=== PATIENT | male | born 1965 | race African-American/Black ===

== ENCOUNTER 2016-07-26 00:56 | Emergency (ER) | payer OTHER ==
[~2016-07-26] VITALS: Ht 177.8 cm; Wt 84.8 kg
[~2016-07-26 00:56] MED LIST: ADVIL,NUPRIN,M200 MG PO; AMBIEN5 MG PO; AZITHROMYCIN250 MG1 PO; CATAPRES0.1 MG PO; CEFTIN500 MG PO; CLONIDINE HCL0.1 MG PO; DALMANE30 MG PO; FLONASE16 G1 BOTH NARES; GENTAMICIN SULFA5 ML BOTH EYES; IRON18 MG PO; LABETALOL HCL200 MG PO; LABETALOL HCL300 MG PO; LASIX10 MG PO; LEVOFLOXACIN500 MG PO; LISINOPRIL20 MG PO; NEURONTIN100 MG PO; NIFEDIPINE ER60 MG PO; NIFEDIPINE ER90 MG PO; OMEPRAZOLE20 MG PO; ONDANSETRON ODT4 MG PO; PREDNISONE20 MG PO; PRILOSEC OTC20 MG PO; PROCARDIA XL90 MG PO; RENA-VITE RX T1 EACH PO; ROBITUSSIN AC,T10 ML PO; TRAZODONE HCL50 MG PO; ZOFRAN4 MG PO
[2016-07-26 01:42] LABS: HEMATOCRIT 32.8 % (38.0-50.0); MCH 26.9 PG (29.0-34.0); MCHC 31.7 G/DL (30.0-36.0); MEAN PLAT.VOLUME 10.6 uM^3 (9.0-12.4); PLATELET COUNT 138 K/uL (156-360); RBC DIS.WIDTH-CV 14.7 % (11.8-14.6); RBC DIS.WIDTH-SD 44.6 % (39-53); RED BLOOD COUNT 3.86 M/uL (4.00-5.50); WHITE BLOOD COUNT 5.6 K/uL (4.1-10.2)
[2016-07-26 01:51] LABS: CHLORIDE 96 mEq/L (99-109); POTASSIUM 5.2 mEq/L (3.7-5.4)
[2016-07-26 01:52] LABS: SODIUM 137 mEq/L (136-147)
[2016-07-26 01:53] LABS: GLUCOSE 115 mg/dL (70-99)
[2016-07-26 01:55] LABS: ANION GAP 16 MEQ/L (2-14)
[2016-07-26 01:57] LABS: GFR ESTIMATE (CALCULATED) 5 mL/min/
[2016-07-26 01:58] LABS: UREA NITROGEN (BUN) 68 mg/dL (9-23)
[2016-07-26 02:28] LABS: TROP-I INTERPRETATION NEGATIVE; TROPONIN-I 0.02 ng/mL (0.0-0.30)
[2016-07-26 02:46] LABS: INFLUENZA A VIRAL ANTIGEN NEGATIVE; INFLUENZA B VIRAL ANTIGEN NEGATIVE
[2016-07-26] MEDS ORDERED: PROAIR HFA8.5 GM IH (04:54)
[2016-07-26] MEDS ORDERED: PREDNISONE20 MG PO (04:54)
[2016-07-26] MEDS ORDERED: HYCODAN SYRUP480 ML PO (04:54)
[2016-07-26] MEDS ORDERED: PERCOCET 5/31 TABLET PO (04:54)
[2016-07-26 06:10] VITALS: BP 150/90
== END 2016-07-26 05:49 | disposition home or self-care (01) ==
LOC: EME 00:56
PROVIDERS: Emergency Medicine
DX: J20.9 Acute bronchitis, unspecified (principal); I12.0 Hypertensive chronic kidney disease with stage 5 chronic kidney disease or end stage renal disease; N18.5 Chronic kidney disease, stage 5; Z99.2 Dependence on renal dialysis; F17.200 Nicotine dependence, unspecified, uncomplicated
CPT/HCPCS: 71020; 80048; 84484; 85027; 87502; 93005; 94640; 99281; 99284; J1100

== ENCOUNTER 2016-10-21 06:55 | Day surgery (SDC) | payer OTHER ==
[~2016-10-21] VITALS: Ht 177.8 cm; Wt 86.1 kg
[~2016-10-21 06:55] MED LIST changes: +CATAPRES0.2 MG PO; +HYCODAN SYRUP480 ML PO; +PERCOCET 5/31 TABLET PO; +PROAIR HFA8.5 GM IH; +RENVELA800 MG PO; +SENSIPAR30 MG PO
[2016-10-21 07:31] LABS: HEMATOCRIT 36.5 % (38.0-50.0); MCH 29.7 PG (29.0-34.0); MCHC 32.3 G/DL (30.0-36.0); MCV 91.9 FL (86-99); MEAN PLAT.VOLUME 10.8 uM^3 (9.0-12.4); PLATELET COUNT 215 K/uL (156-360); RBC DIS.WIDTH-CV 13.2 % (11.8-14.6); RBC DIS.WIDTH-SD 44.2 % (39-53); RED BLOOD COUNT 3.97 M/uL (4.00-5.50); WHITE BLOOD COUNT 6.9 K/uL (4.1-10.2)
[2016-10-21 07:32] VITALS: BP 173/97
[2016-10-21 07:45] LABS: CHLORIDE 93 mEq/L (99-109); POTASSIUM 4.1 mEq/L (3.7-5.4); SODIUM 143 mEq/L (136-147)
[2016-10-21 07:47] LABS: GLUCOSE 116 mg/dL (70-99)
[2016-10-21 07:48] LABS: ANION GAP 16 MEQ/L (2-14)
[2016-10-21 07:51] LABS: GFR ESTIMATE (CALCULATED) 7 mL/min/
[2016-10-21 07:52] LABS: UREA NITROGEN (BUN) 28 mg/dL (9-23)
[2016-10-21 08:36] LABS: METH RESISTANT S AUREUS PCR POSITIVE (NEGATIVE)
[2016-10-21 08:37] LABS: PROBE CHECK PASS
[2016-10-21] MEDS ORDERED: NORCO 5/3251 TABLET PO (10:21)
[2016-10-21 11:30] VITALS: BP 166/88
== END 2016-10-21 11:54 | disposition home or self-care (01) ==
LOC: SDC 06:55
PROVIDERS: Surgery
DX: T82.858A Stenosis of other vascular prosthetic devices, implants and grafts, initial encounter (principal); Y83.2 Surgical operation with anastomosis, bypass or graft as the cause of abnormal reaction of the patient, or of later complication, without mention of misadventure at the time of the procedure; I12.0 Hypertensive chronic kidney disease with stage 5 chronic kidney disease or end stage renal disease; N18.6 End stage renal disease; Z99.2 Dependence on renal dialysis; F17.200 Nicotine dependence, unspecified, uncomplicated; Z83.3 Family history of diabetes mellitus; Z80.3 Family history of malignant neoplasm of breast
CPT/HCPCS: 80048; 85027; 87641; C1725; C1769; C1887; C1894; J0690; J1644; J2250; J3010

== ENCOUNTER 2016-11-21 04:52 | Observation (INO) | payer OTHER ==
[~2016-11-21] VITALS: Ht 177.8 cm; Wt 86.0 kg
[~2016-11-21 04:52] MED LIST changes: +NORCO 5/3251 TABLET PO
[2016-11-21 06:14] LABS: HEMATOCRIT 37.2 % (38.0-50.0); MCH 29.7 PG (29.0-34.0); MCHC 33.1 G/DL (30.0-36.0); MCV 89.9 FL (86-99); MEAN PLAT.VOLUME 11.9 uM^3 (9.0-12.4); PLATELET COUNT 135 K/uL (156-360); RBC DIS.WIDTH-CV 13.1 % (11.8-14.6); RBC DIS.WIDTH-SD 43.3 % (39-53); RED BLOOD COUNT 4.14 M/uL (4.00-5.50); WHITE BLOOD COUNT 7.3 K/uL (4.1-10.2)
[2016-11-21 06:23] LABS: INTER. NORMALIZED RATIO 1.1; PROTHROMBIN TIME 11.7 (9.2-11.2); PTT 29.2 (25-32)
[2016-11-21 06:25] LABS: CHLORIDE 91 mEq/L (99-109); POTASSIUM 4.6 mEq/L (3.7-5.4); SODIUM 141 mEq/L (136-147)
[2016-11-21 06:27] LABS: GLUCOSE 93 mg/dL (70-99)
[2016-11-21 06:29] LABS: ANION GAP 21 MEQ/L (2-14)
[2016-11-21 06:30] LABS: TOTAL BILIRUBIN 0.9 mg/dL (0.0-1.0)
[2016-11-21 06:31] LABS: ALKALINE PHOSPHATASE 84 IU/L (3-129); GFR ESTIMATE (CALCULATED) 5 mL/min/
[2016-11-21 06:32] LABS: UREA NITROGEN (BUN) 47 mg/dL (9-23)
[2016-11-21 06:34] LABS: LIPASE 100 U/L (1.0-51.0)
[2016-11-21 06:35] LABS: TROP-I INTERPRETATION NEGATIVE; TROPONIN-I 0.03 ng/mL (0.0-0.30)
[2016-11-21] MEDS ORDERED: ROPINIROLE HCL0.5 MG PO (08:45)
[2016-11-21 08:53] LABS: ADD MIUA? YES; BILIRUBIN NEGATIVE; BLOOD SMALL; COLOR YELLOW ((YELLOW)); GLUCOSE (STRIP) 50; KETONES 5; LEUKOCYTES NEGATIVE; NITRITE NEGATIVE; PROTEIN (STRIP) >=500; UROBILINOGEN 0.2 MG/DL (0.2-1.0)
[2016-11-21 08:58] LABS: BACTERIA RARE /HPF; EPITHELIAL CELLS RARE /HPF; MUCUS NONE SEEN /LPF; UCUL ADDED? NO; WHITE BLOOD CELLS 0-5 /HPF (0-5)
[2016-11-21 11:12] LABS: POINT-OF-CARE METER ID UU13113702
[2016-11-21 12:15] VITALS: BP 215/100
[2016-11-21 13:11] LABS: TROP-I INTERPRETATION NEGATIVE; TROPONIN-I 0.03 ng/mL (0.0-0.30)
[2016-11-21 13:53] VITALS: BP 188/93
[2016-11-21 15:30] VITALS: BP 166/83
[2016-11-21 15:40] LABS: METH RESISTANT S AUREUS PCR NEGATIVE (NEGATIVE)
[2016-11-21 15:43] LABS: PROBE CHECK PASS; SPECIMEN PROCESSING CONTROL PASS
[2016-11-21 19:00] VITALS: BP 162/59
[2016-11-21 19:28] LABS: TROP-I INTERPRETATION NEGATIVE; TROPONIN-I 0.04 ng/mL (0.0-0.30)
[2016-11-21 23:30] VITALS: BP 153/77
[2016-11-22 04:30] VITALS: BP 134/63
[2016-11-22 07:00] VITALS: BP 161/86
[2016-11-22 07:26] LABS: MCH 29.9 PG (29.0-34.0); MCHC 33.9 G/DL (30.0-36.0); MCV 88.2 FL (86-99); MEAN PLAT.VOLUME 11.6 uM^3 (9.0-12.4); PLATELET COUNT 157 K/uL (156-360); RBC DIS.WIDTH-CV 12.9 % (11.8-14.6); RBC DIS.WIDTH-SD 41.8 % (39-53); RED BLOOD COUNT 3.74 M/uL (4.00-5.50); WHITE BLOOD COUNT 6.2 K/uL (4.1-10.2)
[2016-11-22] MEDS ORDERED: ZOFRAN ODT4 MG PO (07:55)
[2016-11-22 07:56] LABS: ALKALINE PHOSPHATASE 80 IU/L (3-129); AMYLASE 87 IU/L (1-118); ANION GAP 21 MEQ/L (2-14); CHLORIDE 86 MEQ/L (99-109); GFR ESTIMATE (CALCULATED) 4 mL/min/; GLUCOSE 94 mg/dL (70-99); LIPASE 59 U/L (1.0-51.0); POTASSIUM 3.9 MEQ/L (3.7-5.4); SAMPLE HEMOLYSIS CHECK 0; SAMPLE ICTERIC CHECK 0; SAMPLE LIPEMIA CHECK 0; SODIUM 136 MEQ/L (136-147); TOTAL BILIRUBIN 0.8 MG/DL (0.0-1.0); UREA NITROGEN (BUN) 57 mg/dL (9-23)
[2016-11-22 12:09] VITALS: BP 158/95
== END 2016-11-22 15:25 | disposition home or self-care (01) ==
LOC: EME 04:52 → 4EAST 08:35 → EDOF 08:35 → 4EAST 12:00
PROVIDERS: Emergency Medicine; Pediatrics
PROC: 5A1D00Z (ICD-10-PCS; principal; 2016-11-22)
DX: I16.1 Hypertensive emergency (principal); I12.0 Hypertensive chronic kidney disease with stage 5 chronic kidney disease or end stage renal disease; E11.22 Type 2 diabetes mellitus with diabetic chronic kidney disease; N18.6 End stage renal disease; E86.0 Dehydration; R11.2 Nausea with vomiting, unspecified; R31.9 Hematuria, unspecified; B19.20 Unspecified viral hepatitis C without hepatic coma; D64.9 Anemia, unspecified; Z99.2 Dependence on renal dialysis; R91.1 Solitary pulmonary nodule
CPT/HCPCS: 70450; 71010; 74176; 80053; 81003; 82140; 82150; 82948; 83605; 83690; 84484; 85027; 85610; 85730; 87641; 93005; 99281; 99285; G0257; G0378; J0360; J1644; J2270; J2405; J2765

== ENCOUNTER 2016-12-17 23:11 | Inpatient (IN) | payer OTHER ==
[~2016-12-17] VITALS: Ht 177.8 cm; Wt 82.1 kg
[~2016-12-17 23:11] MED LIST changes: +ROPINIROLE HCL0.5 MG PO; +ZOFRAN ODT4 MG PO
[2016-12-17 23:42] LABS: HEMATOCRIT 24.3 % (38.0-50.0); MCH 29.1 PG (29.0-34.0); MCHC 32.9 G/DL (30.0-36.0); MCV 88.4 FL (86-99); MEAN PLAT.VOLUME 10.7 uM^3 (9.0-12.4); PLATELET COUNT 151 K/uL (156-360); RBC DIS.WIDTH-CV 13.4 % (11.8-14.6); RBC DIS.WIDTH-SD 42.5 % (39-53); WHITE BLOOD COUNT 4.3 K/uL (4.1-10.2)
[2016-12-17 23:43] LABS: RED BLOOD COUNT 2.75 M/uL (4.00-5.50)
[2016-12-17 23:50] LABS: CHLORIDE 92 mEq/L (99-109); POTASSIUM 3.6 mEq/L (3.7-5.4); SODIUM 140 mEq/L (136-147)
[2016-12-17 23:51] LABS: GLUCOSE 128 mg/dL (70-99)
[2016-12-17 23:53] LABS: ANION GAP 13 MEQ/L (2-14)
[2016-12-17 23:55] LABS: GFR ESTIMATE (CALCULATED) 7 mL/min/
[2016-12-17 23:56] LABS: UREA NITROGEN (BUN) 27 mg/dL (9-23)
[2016-12-18 00:04] LABS: TROP-I INTERPRETATION NEGATIVE; TROPONIN-I 0.01 ng/mL (0.0-0.30)
[2016-12-18] MEDS ORDERED: CATAPRES0.1 MG PO (00:55)
[2016-12-18] MEDS ORDERED: NORVASC10 MG PO (00:56)
[2016-12-18 06:33] LABS: HEMATOCRIT 24.6 % (38.0-50.0); MCH 29.4 PG (29.0-34.0); MCHC 33.3 G/DL (30.0-36.0); MCV 88.2 FL (86-99); MEAN PLAT.VOLUME 10.1 uM^3 (9.0-12.4); PLATELET COUNT 131 K/uL (156-360); RBC DIS.WIDTH-CV 13.3 % (11.8-14.6); RED BLOOD COUNT 2.79 M/uL (4.00-5.50)
[2016-12-18 11:47] VITALS: BP 144/78
[2016-12-18 12:26] LABS: POINT-OF-CARE METER ID UU13113807
[2016-12-18 13:59] LABS: TROP-I INTERPRETATION NEGATIVE; TROPONIN-I 0.03 ng/mL (0.0-0.30)
[2016-12-18 15:49] VITALS: BP 130/72
[2016-12-18 19:43] LABS: HEMATOCRIT 24.7 % (38.0-50.0); MCV 88.8 FL (86-99)
[2016-12-18 20:16] VITALS: BP 139/76
[2016-12-18 20:16] LABS: TROP-I INTERPRETATION NEGATIVE; TROPONIN-I 0.02 ng/mL (0.0-0.30)
[2016-12-18 23:38] VITALS: BP 139/76; BP 146/80
[2016-12-19 04:16] VITALS: BP 124/76
[2016-12-19 06:53] LABS: HEMATOCRIT 24.7 % (38.0-50.0); MCH 30.2 PG (29.0-34.0); MCV 88.8 FL (86-99); MEAN PLAT.VOLUME 10.5 uM^3 (9.0-12.4); PLATELET COUNT 146 K/uL (156-360); RBC DIS.WIDTH-CV 13.5 % (11.8-14.6); RBC DIS.WIDTH-SD 42.9 % (39-53); RED BLOOD COUNT 2.78 M/uL (4.00-5.50); WHITE BLOOD COUNT 5.3 K/uL (4.1-10.2)
[2016-12-19 07:17] LABS: ANION GAP 17 MEQ/L (2-14); CHLORIDE 88 MEQ/L (99-109); SAMPLE HEMOLYSIS CHECK 0; SAMPLE ICTERIC CHECK 0; SAMPLE LIPEMIA CHECK 0; SODIUM 137 MEQ/L (136-147)
[2016-12-19 07:22] LABS: GFR ESTIMATE (CALCULATED) 5 mL/min/; GLUCOSE 81 mg/dL (70-99); POTASSIUM 4.4 MEQ/L (3.7-5.4); UREA NITROGEN (BUN) 41 mg/dL (9-23)
[2016-12-19 07:31] LABS: HEMATOCRIT 24.7 % (38.0-50.0); MCV 88.8 FL (86-99)
[2016-12-19 07:54] LABS: METH RESISTANT S AUREUS PCR NEGATIVE (NEGATIVE)
[2016-12-19 07:57] LABS: PROBE CHECK PASS; SPECIMEN PROCESSING CONTROL PASS
[2016-12-19 12:03] VITALS: BP 126/67
[2016-12-19 13:05] VITALS: BP 126/67
[2016-12-19 16:55] VITALS: BP 116/58
[2016-12-19 20:00] VITALS: BP 133/71
[2016-12-19 20:17] LABS: HEMATOCRIT 22.6 % (38.0-50.0); MCV 87.6 FL (86-99)
[2016-12-20] VITALS: BP 135/74
[2016-12-20 03:53] VITALS: BP 142/77
[2016-12-20 07:58] LABS: HEMATOCRIT 22.9 % (38.0-50.0); MCHC 34.5 G/DL (30.0-36.0); MCV 87.1 FL (86-99); MEAN PLAT.VOLUME 11.2 uM^3 (9.0-12.4); PLATELET COUNT 147 K/uL (156-360); RBC DIS.WIDTH-CV 13.8 % (11.8-14.6); RBC DIS.WIDTH-SD 41.8 % (39-53); RED BLOOD COUNT 2.63 M/uL (4.00-5.50); WHITE BLOOD COUNT 5.6 K/uL (4.1-10.2)
[2016-12-20 08:08] LABS: ANION GAP 16 MEQ/L (2-14); CHLORIDE 87 MEQ/L (99-109); POTASSIUM 4.8 MEQ/L (3.7-5.4); SAMPLE HEMOLYSIS CHECK 0; SAMPLE ICTERIC CHECK 0; SAMPLE LIPEMIA CHECK 0; SODIUM 133 MEQ/L (136-147)
[2016-12-20 08:13] LABS: GFR ESTIMATE (CALCULATED) 4 mL/min/; GLUCOSE 98 mg/dL (70-99); UREA NITROGEN (BUN) 59 mg/dL (9-23)
[2016-12-20 12:13] VITALS: BP 131/62
[2016-12-20 14:48] LABS: HEMATOCRIT 21.7 % (38.0-50.0); MCV 88.6 FL (86-99)
[2016-12-20 16:03] VITALS: BP 137/68
[2016-12-20 20:01] VITALS: BP 142/69
[2016-12-20 20:06] LABS: HEMATOCRIT 22.2 % (38.0-50.0); MCV 89.2 FL (86-99)
[2016-12-21 07:26] VITALS: BP 141/66
[2016-12-21 07:38] LABS: EOSINOPHIL (%) 2.1 % (0-5); EOSINOPHIL COUNT 0.1 K/uL (0-0.3); HEMATOCRIT 24.3 % (38.0-50.0); IMMATURE GRANULOCYTE (%) 0.2 % (0.0-0.7); INSTRUMENT ABS NEUTROPHIL CT 2.8 K/uL; MCH 30.7 PG (29.0-34.0); MCHC 34.2 G/DL (30.0-36.0); MEAN PLAT.VOLUME 11.3 uM^3 (9.0-12.4); MONOCYTE (%) 10.5 % (3-12); MONOCYTE COUNT 0.5 K/uL (0-0.8); NEUTROPHIL (%) 63.9 % (45-76); NEUTROPHIL COUNT 2.8 K/uL (1.8-6.4); PLATELET COUNT 133 K/uL (156-360); RBC DIS.WIDTH-CV 14.6 % (11.8-14.6); RBC DIS.WIDTH-SD 45.8 % (39-53); WHITE BLOOD COUNT 4.3 K/uL (4.1-10.2)
[2016-12-21 07:42] LABS: ALKALINE PHOSPHATASE 73 IU/L (3-129); ANION GAP 13 MEQ/L (2-14); CHLORIDE 89 MEQ/L (99-109); GFR ESTIMATE (CALCULATED) 6 mL/min/; GLUCOSE 99 mg/dL (70-99); POTASSIUM 4.2 MEQ/L (3.7-5.4); SAMPLE HEMOLYSIS CHECK 0; SAMPLE ICTERIC CHECK 0; SAMPLE LIPEMIA CHECK 0; SODIUM 135 MEQ/L (136-147); TOTAL BILIRUBIN 0.6 MG/DL (0.0-1.0); UREA NITROGEN (BUN) 34 mg/dL (9-23)
[2016-12-21 11:34] VITALS: BP 1218/60
[2016-12-21] MEDS ORDERED: PROTONIX IV40 MG PO (13:02)
== END 2016-12-21 15:00 | disposition home or self-care (01) | DRG 377 ==
LOC: EME 23:11 → 4SOUTH 12-18 05:54 → EDOF 12-18 05:54 → 4SOUTH 12-18 11:35
PROVIDERS: Hospitalist; Nurse Practitioner Adult Health; Pediatrics; Physician Assistant
PROC: 0DB68ZX Excision of Stomach, Via Natural or Artificial Opening Endoscopic, Diagnostic (ICD-10-PCS; principal; 2016-12-19)
PROC: 5A1D00Z (ICD-10-PCS; 2016-12-20)
DX: K92.1 Melena (principal); N18.6 End stage renal disease; K22.10 Ulcer of esophagus without bleeding; I12.0 Hypertensive chronic kidney disease with stage 5 chronic kidney disease or end stage renal disease; D61.818 Other pancytopenia; N25.81 Secondary hyperparathyroidism of renal origin; L89.311 Pressure ulcer of right buttock, stage 1; B18.2 Chronic viral hepatitis C; K25.3 Acute gastric ulcer without hemorrhage or perforation; D63.1 Anemia in chronic kidney disease; F17.210 Nicotine dependence, cigarettes, uncomplicated; I51.7 Cardiomegaly; Z82.49 Family history of ischemic heart disease and other diseases of the circulatory system; K25.7 Chronic gastric ulcer without hemorrhage or perforation; J43.9 Emphysema, unspecified; G43.909 Migraine, unspecified, not intractable, without status migrainosus; K59.00 Constipation, unspecified; R07.9 Chest pain, unspecified; Z99.2 Dependence on renal dialysis; Z73.6 Limitation of activities due to disability; Z87.11 Personal history of peptic ulcer disease; Z84.1 Family history of disorders of kidney and ureter
CPT/HCPCS: 70450; 71020; 80048; 80053; 80069; 82272; 82948; 84484; 85014; 85018; 85025; 85027; 87641; 88305; 88342 TC; 93005; 94640; 94640 76; 99202; 99281; 99285; C9113; J0360; J0881; J1200; J1270; J1885; J2250; J2270; J2405; J2765; J3010

== ENCOUNTER 2017-01-18 21:23 | Inpatient (IN) | payer OTHER ==
[~2017-01-18] VITALS: Ht 177.8 cm; Wt 80.7 kg
[~2017-01-18 21:23] MED LIST changes: +NORVASC10 MG PO; +PROTONIX IV40 MG PO
[2017-01-18 22:09] LABS: HEMATOCRIT 30.4 % (38.0-50.0); MCH 29.6 PG (29.0-34.0); MCHC 32.2 G/DL (30.0-36.0); MCV 91.8 FL (86-99); MEAN PLAT.VOLUME 10.6 uM^3 (9.0-12.4); PLATELET COUNT 138 K/uL (156-360); RBC DIS.WIDTH-SD 47.1 % (39-53)
[2017-01-18 22:11] LABS: RED BLOOD COUNT 3.31 M/uL (4.00-5.50)
[2017-01-18 22:19] LABS: CHLORIDE 97 mEq/L (99-109); POTASSIUM 4.5 mEq/L (3.7-5.4); SODIUM 143 mEq/L (136-147)
[2017-01-18 22:21] LABS: GLUCOSE 99 mg/dL (70-99)
[2017-01-18 22:22] LABS: ANION GAP 19 MEQ/L (2-14)
[2017-01-18 22:25] LABS: GFR ESTIMATE (CALCULATED) 5 mL/min/
[2017-01-18 22:26] LABS: UREA NITROGEN (BUN) 44 mg/dL (9-23)
[2017-01-19 01:25] LABS: INTER. NORMALIZED RATIO 1.2; PROTHROMBIN TIME 13.2 SEC (10.2-12.9)
[2017-01-19 01:28] LABS: PTT 33.4 SEC (25-37)
[2017-01-19 01:32] LABS: TOTAL BILIRUBIN 0.8 mg/dL (0.0-1.0)
[2017-01-19 01:33] LABS: ALKALINE PHOSPHATASE 76 IU/L (3-129)
[2017-01-19 01:36] LABS: DIRECT BILIRUBIN 0.3 mg/dL (0.0-0.3)
[2017-01-19 01:37] LABS: LIPASE 58 U/L (1.0-51.0)
[2017-01-19 09:14] LABS: TROP-I INTERPRETATION NEGATIVE; TROPONIN-I 0.02 ng/mL (0.0-0.30)
[2017-01-19] MEDS ORDERED: RENA-VITE RX T1 EACH PO (09:42)
[2017-01-19] MEDS ORDERED: BACLOFEN10 MG PO (10:10)
[2017-01-19] MEDS ORDERED: ROPINIROLE HCL1 MG PO (10:13)
[2017-01-19] MEDS ORDERED: PROTONIX40 MG PO (10:13)
[2017-01-19] MEDS ORDERED: TYLENOL EXTRA500 MG PO (10:16)
[2017-01-19] MEDS ORDERED: SENSIPAR60 MG PO (10:20)
[2017-01-19 12:33] LABS: EOSINOPHIL (%) 2.2 % (0-5); EOSINOPHIL COUNT 0.1 K/uL (0-0.3); HEMATOCRIT 31.1 % (38.0-50.0); IMMATURE GRANULOCYTE (%) 0.3 % (0.0-0.7); INSTRUMENT ABS NEUTROPHIL CT 4.2 K/uL; MCH 29.6 PG (29.0-34.0); MCHC 32.2 G/DL (30.0-36.0); MEAN PLAT.VOLUME 11.5 uM^3 (9.0-12.4); MONOCYTE (%) 10.6 % (3-12); MONOCYTE COUNT 0.6 K/uL (0-0.8); NEUTROPHIL (%) 69.6 % (45-76); NEUTROPHIL COUNT 4.2 K/uL (1.8-6.4); PLATELET COUNT 131 K/uL (156-360); RBC DIS.WIDTH-CV 14.4 % (11.8-14.6); RBC DIS.WIDTH-SD 47.9 % (39-53); RED BLOOD COUNT 3.38 M/uL (4.00-5.50)
[2017-01-19 12:52] LABS: ANION GAP 18 MEQ/L (2-14); CHLORIDE 95 MEQ/L (99-109); GFR ESTIMATE (CALCULATED) 5 mL/min/; GLUCOSE 132 mg/dL (70-99); POTASSIUM 4.2 MEQ/L (3.7-5.4); SAMPLE HEMOLYSIS CHECK 0; SAMPLE ICTERIC CHECK 0; SAMPLE LIPEMIA CHECK 0; SODIUM 140 MEQ/L (136-147); UREA NITROGEN (BUN) 49 mg/dL (9-23)
[2017-01-19 16:53] LABS: TROP-I INTERPRETATION NEGATIVE; TROPONIN-I 0.03 ng/mL (0.0-0.30)
[2017-01-19 17:42] VITALS: BP 214/98
[2017-01-19 18:38] VITALS: BP 172/87
[2017-01-19 20:00] VITALS: BP 159/89
[2017-01-19 20:37] LABS: METH RESISTANT S AUREUS PCR NEGATIVE (NEGATIVE)
[2017-01-19 20:38] LABS: PROBE CHECK PASS; SPECIMEN PROCESSING CONTROL PASS
[2017-01-19 21:09] LABS: TROP-I INTERPRETATION NEGATIVE; TROPONIN-I 0.03 ng/mL (0.0-0.30)
[2017-01-19 23:55] VITALS: BP 160/82
[2017-01-20 04:00] VITALS: BP 143/93
[2017-01-20 06:35] LABS: ANION GAP 14 MEQ/L (2-14); CHLORIDE 96 MEQ/L (99-109); GFR ESTIMATE (CALCULATED) 6 mL/min/; POTASSIUM 4.5 MEQ/L (3.7-5.4); SAMPLE HEMOLYSIS CHECK 0; SAMPLE ICTERIC CHECK 0; SAMPLE LIPEMIA CHECK 0; SODIUM 137 MEQ/L (136-147); UREA NITROGEN (BUN) 31 mg/dL (9-23)
[2017-01-20 06:38] LABS: GLUCOSE 88 mg/dL (70-99)
[2017-01-20 07:30] VITALS: BP 172/72
[2017-01-20 11:55] VITALS: BP 180/88
[2017-01-20 15:00] VITALS: BP 141/76
[2017-01-20 20:05] VITALS: BP 154/82
[2017-01-21 00:22] VITALS: BP 147/70
[2017-01-21 06:55] VITALS: BP 168/80
[2017-01-21 07:53] LABS: ANION GAP 16 MEQ/L (2-14); CHLORIDE 96 MEQ/L (99-109); POTASSIUM 4.2 MEQ/L (3.7-5.4); SAMPLE HEMOLYSIS CHECK 0; SAMPLE ICTERIC CHECK 0; SAMPLE LIPEMIA CHECK 0; SODIUM 138 MEQ/L (136-147)
[2017-01-21 07:58] LABS: EOSINOPHIL (%) 2.4 % (0-5); EOSINOPHIL COUNT 0.1 K/uL (0-0.3); HEMATOCRIT 28.8 % (38.0-50.0); IMMATURE GRANULOCYTE (%) 0.2 % (0.0-0.7); LYMPHOCYTE COUNT 1.2 K/uL (1.0-2.8); MCHC 34.4 G/DL (30.0-36.0); MCV 90.3 FL (86-99); MEAN PLAT.VOLUME 11.3 uM^3 (9.0-12.4); MONOCYTE (%) 11.2 % (3-12); MONOCYTE COUNT 0.6 K/uL (0-0.8); PLATELET COUNT 132 K/uL (156-360); RBC DIS.WIDTH-CV 13.8 % (11.8-14.6); RED BLOOD COUNT 3.19 M/uL (4.00-5.50); WHITE BLOOD COUNT 4.9 K/uL (4.1-10.2)
[2017-01-21 07:59] LABS: GFR ESTIMATE (CALCULATED) 5 mL/min/; UREA NITROGEN (BUN) 44 mg/dL (9-23)
[2017-01-21 08:01] LABS: GLUCOSE 164 mg/dL (70-99)
[2017-01-21 12:00] VITALS: BP 162/78
[2017-01-21] MEDS ORDERED: NICOTINE PATCH1 EAC2 TD (14:39)
[2017-01-21 17:15] VITALS: BP 156/88
== END 2017-01-21 17:41 | disposition home or self-care (01) | DRG 304 ==
LOC: EXP 21:23 → EME 21:23 → EDOF 01-19 07:47 → 4EAST 01-19 07:47 → EDOF 01-19 08:27 → 4EAST 01-19 17:13
PROVIDERS: Internal Medicine; Internal Medicine Nephrology
PROC: 5A1D00Z (ICD-10-PCS; principal; 2017-01-20)
DX: I16.0 Hypertensive urgency (principal); N18.6 End stage renal disease; N25.81 Secondary hyperparathyroidism of renal origin; I12.0 Hypertensive chronic kidney disease with stage 5 chronic kidney disease or end stage renal disease; D63.8 Anemia in other chronic diseases classified elsewhere; K52.9 Noninfective gastroenteritis and colitis, unspecified; F17.200 Nicotine dependence, unspecified, uncomplicated; Z86.19 Personal history of other infectious and parasitic diseases; Z90.49 Acquired absence of other specified parts of digestive tract; Z99.2 Dependence on renal dialysis; Z91.19 Patient's noncompliance with other medical treatment and regimen; Z82.49 Family history of ischemic heart disease and other diseases of the circulatory system; Z83.3 Family history of diabetes mellitus
CPT/HCPCS: 70450; 71020; 80048; 80069; 80076; 81003; 83690; 84484; 85025; 85027; 85610; 85730; 87493; 87506; 87641; 93005; 99281; 99284; G0378; J0360; J1644; J2270; J2405; J2765

== ENCOUNTER 2017-02-27 04:50 | Inpatient (IN) | payer OTHER ==
[~2017-02-27] VITALS: Ht 177.8 cm; Wt 80.8 kg
[~2017-02-27 04:50] MED LIST changes: +BACLOFEN10 MG PO; +NICOTINE PATCH1 EAC2 TD; +PROTONIX40 MG PO; +ROPINIROLE HCL1 MG PO; +SENSIPAR60 MG PO; +TYLENOL EXTRA500 MG PO
[2017-02-27 06:11] LABS: HEMATOCRIT 42.9 % (38.0-50.0); MCH 28.8 PG (29.0-34.0); MCHC 32.9 G/DL (30.0-36.0); MCV 87.6 FL (86-99); MEAN PLAT.VOLUME 11.2 uM^3 (9.0-12.4); PLATELET COUNT 176 K/uL (156-360); RBC DIS.WIDTH-SD 45.1 % (39-53); WHITE BLOOD COUNT 8.7 K/uL (4.1-10.2)
[2017-02-27 06:26] LABS: CHLORIDE 97 mEq/L (99-109); SODIUM 138 mEq/L (136-147)
[2017-02-27 06:28] LABS: GLUCOSE 102 mg/dL (70-99)
[2017-02-27 06:29] LABS: ANION GAP 23 MEQ/L (2-14)
[2017-02-27 06:30] LABS: TOTAL BILIRUBIN 0.9 mg/dL (0.0-1.0)
[2017-02-27 06:32] LABS: ALKALINE PHOSPHATASE 106 IU/L (3-129); GFR ESTIMATE (CALCULATED) 3 mL/min/
[2017-02-27 06:33] LABS: UREA NITROGEN (BUN) 80 mg/dL (9-23)
[2017-02-27 06:35] LABS: LIPASE 82 U/L (1.0-51.0)
[2017-02-27 07:34] LABS: POINT-OF-CARE METER ID UU13113702
[2017-02-27 08:32] LABS: POINT-OF-CARE METER ID UU13113702
[2017-02-27 09:16] LABS: POINT-OF-CARE METER ID UU13113702
[2017-02-27 09:50] LABS: ANION GAP 20 MEQ/L (2-14); CHLORIDE 105 mEq/L (99-109); CREATININE > 20.0 mg/dL (0.6-1.3); GLUCOSE 60 mg/dL (70-99); ISTAT DEVICE 359068; POTASSIUM 5.2 mEq/L (3.7-5.4); SODIUM 138 mEq/L (136-147); UREA NITROGEN (BUN) 75 mg/dL (9-23)
[2017-02-27] MEDS ORDERED: CATAPRES0.2 MG PO (09:57)
[2017-02-27] MEDS ORDERED: NIFEDIPINE ER60 MG PO (10:02)
[2017-02-27] MEDS ORDERED: LONITEN2.5 MG PO (10:13)
[2017-02-27] MEDS ORDERED: AMLODIPINE BESY10 MG PO (10:16)
[2017-02-27 11:45] LABS: POINT-OF-CARE METER ID UU13113702
[2017-02-27 12:19] VITALS: BP 242/111
[2017-02-27 13:00] VITALS: BP 242/111
[2017-02-27 15:26] LABS: POINT-OF-CARE METER ID UU13113681; POINT-OF-CARE USER ID DROKMM72
[2017-02-27 18:56] VITALS: BP 233/105
[2017-02-27 22:37] VITALS: BP 237/110
[2017-02-28] VITALS (25 sets, daily range): BP systolic 149–261; BP diastolic 78–123
[2017-02-28 05:08] LABS: HEMATOCRIT 42.7 % (38.0-50.0); MCH 29.1 PG (29.0-34.0); MCHC 32.8 G/DL (30.0-36.0); MCV 88.8 FL (86-99); MEAN PLAT.VOLUME 12.2 uM^3 (9.0-12.4); PLATELET COUNT 186 K/uL (156-360); RBC DIS.WIDTH-CV 14.4 % (11.8-14.6); RBC DIS.WIDTH-SD 46.5 % (39-53); RED BLOOD COUNT 4.81 M/uL (4.00-5.50); WHITE BLOOD COUNT 6.7 K/uL (4.1-10.2)
[2017-02-28 05:36] LABS: ANION GAP 19 MEQ/L (2-14); CHLORIDE 97 MEQ/L (99-109); GLUCOSE 101 mg/dL (70-99); POTASSIUM 5.2 MEQ/L (3.7-5.4); SAMPLE HEMOLYSIS CHECK 0; SAMPLE ICTERIC CHECK 0; SAMPLE LIPEMIA CHECK 0; SODIUM 142 MEQ/L (136-147); UREA NITROGEN (BUN) 44 mg/dL (9-23)
[2017-02-28 05:40] LABS: GFR ESTIMATE (CALCULATED) 5 mL/min/
[2017-03-01] VITALS (36 sets, daily range): BP systolic 14–241; BP diastolic 27–111
[2017-03-01 05:27] LABS: BASOPHIL COUNT 0.1 K/uL (0-0.1); EOSINOPHIL (%) 1.2 % (0-5); EOSINOPHIL COUNT 0.1 K/uL (0-0.3); HEMATOCRIT 42.5 % (38.0-50.0); IMMATURE GRANULOCYTE (%) 0.3 % (0.0-0.7); INSTRUMENT ABS NEUTROPHIL CT 5.1 K/uL; LYMPHOCYTE COUNT 1.4 K/uL (1.0-2.8); MCH 29.5 PG (29.0-34.0); MCHC 33.4 G/DL (30.0-36.0); MCV 88.4 FL (86-99); MEAN PLAT.VOLUME 12.4 uM^3 (9.0-12.4); MONOCYTE (%) 11.9 % (3-12); MONOCYTE COUNT 0.9 K/uL (0-0.8); NEUTROPHIL (%) 67.2 % (45-76); NEUTROPHIL COUNT 5.1 K/uL (1.8-6.4); PLATELET COUNT 190 K/uL (156-360); RBC DIS.WIDTH-CV 13.9 % (11.8-14.6); RBC DIS.WIDTH-SD 44.8 % (39-53); RED BLOOD COUNT 4.81 M/uL (4.00-5.50); WHITE BLOOD COUNT 7.5 K/uL (4.1-10.2)
[2017-03-01 06:01] LABS: ALKALINE PHOSPHATASE 89 IU/L (3-129); ANION GAP 16 MEQ/L (2-14); CHLORIDE 93 MEQ/L (99-109); GFR ESTIMATE (CALCULATED) 6 mL/min/; GLUCOSE 93 mg/dL (70-99); POTASSIUM 4.2 MEQ/L (3.7-5.4); SAMPLE HEMOLYSIS CHECK 0; SAMPLE ICTERIC CHECK 0; SAMPLE LIPEMIA CHECK 0; SODIUM 136 MEQ/L (136-147); TOTAL BILIRUBIN 0.8 MG/DL (0.0-1.0); UREA NITROGEN (BUN) 42 mg/dL (9-23)
[2017-03-02 00:45] VITALS: BP 145/76
[2017-03-02 04:15] VITALS: BP 122/56
[2017-03-02] MEDS ORDERED: APRESOLINE50 MG PO (07:35)
[2017-03-02] MEDS ORDERED: OXYCODONE HCL5 MG PO (07:35)
[2017-03-02 08:34] LABS: EOSINOPHIL COUNT 0.1 K/uL (0-0.3); HEMATOCRIT 33.9 % (38.0-50.0); IMMATURE GRANULOCYTE (%) 0.2 % (0.0-0.7); INSTRUMENT ABS NEUTROPHIL CT 3.4 K/uL; LYMPHOCYTE COUNT 1.3 K/uL (1.0-2.8); MCH 28.5 PG (29.0-34.0); MCHC 32.7 G/DL (30.0-36.0); MCV 86.9 FL (86-99); MONOCYTE (%) 12.5 % (3-12); MONOCYTE COUNT 0.7 K/uL (0-0.8); NEUTROPHIL (%) 61.7 % (45-76); NEUTROPHIL COUNT 3.4 K/uL (1.8-6.4); RBC DIS.WIDTH-CV 13.9 % (11.8-14.6); RBC DIS.WIDTH-SD 44.7 % (39-53); WHITE BLOOD COUNT 5.4 K/uL (4.1-10.2)
[2017-03-02 08:54] LABS: ABS NEUTROPHIL COUNT 3.3; ATYPICAL LYMPHOCYTE 1.7 %; BASOPHILS 0.9 %; EOSINOPHIL ABS CT 0.3; EOSINOPHILS 5.3 % (0-5.0); LYMPHOCYTES 17.5 % (15.0-45.0); MEAN PLAT.VOLUME 11.2 uM^3 (9.0-12.4); PLAT.SUFFICIENCY DECREASED; SEG.NEUTROPHILS 61.4 % (46.0-76.0)
[2017-03-02 08:56] LABS: ANION GAP 19 MEQ/L (2-14); CHLORIDE 96 MEQ/L (99-109); GFR ESTIMATE (CALCULATED) 5 mL/min/; GLUCOSE 135 mg/dL (70-99); POTASSIUM 4.2 MEQ/L (3.7-5.4); SAMPLE HEMOLYSIS CHECK 0; SAMPLE ICTERIC CHECK 0; SAMPLE LIPEMIA CHECK 0; SODIUM 137 MEQ/L (136-147); UREA NITROGEN (BUN) 59 mg/dL (9-23)
[2017-03-02 09:12] LABS: PLATELET COUNT 125 K/uL (156-360)
[2017-03-02 10:38] VITALS: BP 133/67
== END 2017-03-02 13:00 | disposition home or self-care (01) | DRG 682 ==
LOC: EME 04:50 → 4EAST 09:43 → EDOF 09:43 → ENRESERV 09:47 → 4EAST 11:53 → ENPENDDIS 03-02 → 4EAST 03-02 13:00
PROVIDERS: Emergency Medicine; Internal Medicine Nephrology; Nurse Practitioner Adult Health; Pediatrics; Physician Assistant
PROC: 5A1D60Z (ICD-10-PCS; principal; 2017-02-27)
DX: I12.0 Hypertensive chronic kidney disease with stage 5 chronic kidney disease or end stage renal disease (principal); N18.6 End stage renal disease; E87.5 Hyperkalemia; E87.2 Acidosis; D63.8 Anemia in other chronic diseases classified elsewhere; R79.89 Other specified abnormal findings of blood chemistry; F17.200 Nicotine dependence, unspecified, uncomplicated; R19.7 Diarrhea, unspecified; E86.0 Dehydration; E03.9 Hypothyroidism, unspecified; B19.20 Unspecified viral hepatitis C without hepatic coma; R10.9 Unspecified abdominal pain; Z99.2 Dependence on renal dialysis; Z83.3 Family history of diabetes mellitus
CPT/HCPCS: 74176; 80047; 80048; 80053; 80069; 82948; 83605; 83690; 85025; 85027; 93005; 94640; 99281; 99285; C9113; J0360; J1170; J1940; J2270; J2405; J2765; J7030; J7050

== ENCOUNTER 2017-04-06 01:02 | Emergency (ER) | payer OTHER ==
[~2017-04-06] VITALS: Ht 177.8 cm; Wt 84.0 kg
[~2017-04-06 01:02] MED LIST changes: +AMLODIPINE BESY10 MG PO; +APRESOLINE50 MG PO; +LONITEN2.5 MG PO; +OXYCODONE HCL5 MG PO
[2017-04-06 03:00] LABS: EOSINOPHIL (%) 2.9 % (0-5); EOSINOPHIL COUNT 0.2 K/uL (0-0.3); HEMATOCRIT 30.1 % (38.0-50.0); IMMATURE GRANULOCYTE (%) 0.2 % (0.0-0.7); INSTRUMENT ABS NEUTROPHIL CT 3.4 K/uL; LYMPHOCYTE COUNT 1.2 K/uL (1.0-2.8); MCHC 31.6 G/DL (30.0-36.0); MCV 88.8 FL (86-99); MEAN PLAT.VOLUME 11.1 uM^3 (9.0-12.4); MONOCYTE (%) 12.5 % (3-12); MONOCYTE COUNT 0.7 K/uL (0-0.8); NEUTROPHIL COUNT 3.4 K/uL (1.8-6.4); PLATELET COUNT 127 K/uL (156-360); RBC DIS.WIDTH-CV 15.5 % (11.8-14.6); RED BLOOD COUNT 3.39 M/uL (4.00-5.50); WHITE BLOOD COUNT 5.5 K/uL (4.1-10.2)
[2017-04-06 03:24] LABS: CHLORIDE 99 mEq/L (99-109); POTASSIUM 5.5 mEq/L (3.7-5.4); SODIUM 145 mEq/L (136-147)
[2017-04-06 03:27] LABS: GLUCOSE 112 mg/dL (70-99)
[2017-04-06 03:28] LABS: ANION GAP 18 MEQ/L (2-14); TOTAL BILIRUBIN 0.7 mg/dL (0.0-1.0)
[2017-04-06 03:30] LABS: ALKALINE PHOSPHATASE 77 IU/L (3-129); GFR ESTIMATE (CALCULATED) 5 mL/min/
[2017-04-06 03:31] LABS: UREA NITROGEN (BUN) 57 mg/dL (9-23)
[2017-04-06 03:36] LABS: TROP-I INTERPRETATION NEGATIVE; TROPONIN-I 0.09 ng/mL (0.0-0.30)
[2017-04-06 05:13] VITALS: BP 164/87
== END 2017-04-06 05:15 | disposition left against medical advice (07) ==
LOC: EME 01:02
PROVIDERS: Emergency Medicine
DX: G47.30 Sleep apnea, unspecified (principal); I12.0 Hypertensive chronic kidney disease with stage 5 chronic kidney disease or end stage renal disease; N18.5 Chronic kidney disease, stage 5; Z99.2 Dependence on renal dialysis; F17.200 Nicotine dependence, unspecified, uncomplicated
CPT/HCPCS: 70450; 74176; 80053; 81003; 84484; 85025; 93005; 99281; 99284

== ENCOUNTER 2017-05-15 21:39 | Emergency (ER) | payer OTHER ==
[~2017-05-15] VITALS: Ht 177.8 cm; Wt 87.2 kg
[2017-05-15] MEDS ORDERED: SKELAXIN800 MG PO (23:45)
[2017-05-15] MEDS ORDERED: PERCOCET 5/31 TABLET PO (23:45)
[2017-05-15 23:57] VITALS: BP 176/82
== END 2017-05-15 23:58 | disposition home or self-care (01) ==
LOC: EME 21:39
DX: S39.012A Strain of muscle, fascia and tendon of lower back, initial encounter (principal); F17.200 Nicotine dependence, unspecified, uncomplicated; Z99.2 Dependence on renal dialysis; I10 Essential (primary) hypertension
CPT/HCPCS: 72100; 99281; 99283; J8540

== ENCOUNTER 2017-05-24 05:30 | Day surgery (SDC) | payer OTHER ==
[~2017-05-24] VITALS: Ht 177.8 cm; Wt 86.2 kg
[~2017-05-24 05:30] MED LIST changes: +PROCARDIA XL60 MG PO; +RENAL-VITE TAB0.8 MG PO; +SKELAXIN800 MG PO
[2017-05-24 06:07] VITALS: BP 126/72
[2017-05-24 06:18] LABS: HEMATOCRIT 31.5 % (38.0-50.0); MCH 28.6 PG (29.0-34.0); MCHC 32.1 G/DL (30.0-36.0); MCV 89.2 FL (86-99); MEAN PLAT.VOLUME 11.1 uM^3 (9.0-12.4); PLATELET COUNT 147 K/uL (156-360); RBC DIS.WIDTH-CV 13.5 % (11.8-14.6); RBC DIS.WIDTH-SD 43.8 % (39-53); RED BLOOD COUNT 3.53 M/uL (4.00-5.50)
[2017-05-24 06:57] LABS: ANION GAP 13 MEQ/L (2-14); CHLORIDE 94 MEQ/L (99-109); GFR ESTIMATE (CALCULATED) 7 mL/min/; GLUCOSE 135 mg/dL (70-99); POTASSIUM 4.9 MEQ/L (3.7-5.4); SAMPLE HEMOLYSIS CHECK 0; SAMPLE ICTERIC CHECK 0; SAMPLE LIPEMIA CHECK 0; SODIUM 138 MEQ/L (136-147); UREA NITROGEN (BUN) 41 mg/dL (9-23)
[2017-05-24 07:19] LABS: METH RESISTANT S AUREUS PCR NEGATIVE (NEGATIVE)
[2017-05-24 07:20] LABS: PROBE CHECK PASS; SPECIMEN PROCESSING CONTROL PASS
[2017-05-24] MEDS ORDERED: NORCO 5/3251 TABLET PO (09:24)
[2017-05-24 10:29] VITALS: BP 112/64
[2017-05-24 11:25] VITALS: BP 117/58
[2017-05-24 12:07] VITALS: BP 128/64
== END 2017-05-24 12:30 | disposition home or self-care (01) ==
LOC: SDC
PROVIDERS: Surgery
PROC: 0YU50JZ Supplement Right Inguinal Region with Synthetic Substitute, Open Approach (ICD-10-PCS; principal; 2017-05-24)
DX: K40.90 Unilateral inguinal hernia, without obstruction or gangrene, not specified as recurrent (principal); I12.9 Hypertensive chronic kidney disease with stage 1 through stage 4 chronic kidney disease, or unspecified chronic kidney disease; N18.9 Chronic kidney disease, unspecified; K21.9 Gastro-esophageal reflux disease without esophagitis; F17.210 Nicotine dependence, cigarettes, uncomplicated
CPT/HCPCS: 80048; 85027; 87641; C1781; J0131; J0690; J1170; J2250; J2405; J3010; S0020

== ENCOUNTER 2017-09-29 12:50 | Emergency (ER) | payer OTHER ==
[~2017-09-29] VITALS: Ht 177.8 cm; Wt 86.3 kg
[2017-09-29 13:39] LABS: HEMATOCRIT 27.8 % (38.0-50.0); HEMOGLOBIN 9.4 G/DL (12.5-16.6); MCH 29.7 PG (29.0-34.0); MCHC 33.8 G/DL (30.0-36.0); RBC DIS.WIDTH-CV 14.8 % (11.8-14.6); RBC DIS.WIDTH-SD 47.5 % (39-53); RED BLOOD COUNT 3.16 M/uL (4.00-5.50); WHITE BLOOD COUNT 3.7 K/uL (4.1-10.2)
[2017-09-29 13:40] LABS: PLATELET COUNT 87 K/uL (156-360)
[2017-09-29 13:47] LABS: ALBUMIN 3.9 g/dL (3.2-4.8); CHLORIDE 96 mEq/L (99-109); POTASSIUM 5.4 mEq/L (3.7-5.4); SODIUM 140 mEq/L (136-147)
[2017-09-29 13:47] LABS: APPEARANCE CLOUDY ((CLEAR)); BILIRUBIN NEGATIVE; BLOOD SMALL; COLOR YELLOW ((YELLOW)); GLUCOSE (STRIP) 50; KETONES NEGATIVE; LEUKOCYTES LARGE; NITRITE NEGATIVE; PROTEIN (STRIP) 100; SPECIFIC GRAVITY 1.013 (1.000-1.030); UROBILINOGEN 0.2 MG/DL (0.2-1.0)
[2017-09-29 13:49] LABS: GLUCOSE 111 mg/dL (70-99)
[2017-09-29 13:50] LABS: TOTAL PROTEIN 7.2 g/dL (6.4-8.3)
[2017-09-29 13:51] LABS: TOTAL BILIRUBIN 1.3 mg/dL (0.0-1.0)
[2017-09-29 13:53] LABS: ALKALINE PHOSPHATASE 134 IU/L (3-129); CREATININE 20.8 mg/dL (0.6-1.3); GFR ESTIMATE (CALCULATED) 3 mL/min/ (58.99-99999)
[2017-09-29 13:54] LABS: UREA NITROGEN (BUN) 65 mg/dL (9-23)
[2017-09-29 13:55] LABS: AST (GOT) 57 IU/L (2-34)
[2017-09-29 13:56] LABS: ALT (GPT) 72 IU/L (3-49)
[2017-09-29 13:57] LABS: LIPASE 71 U/L (1.0-51.0)
[2017-09-29 13:57] LABS: EPITHELIAL CELLS 1+ /HPF
[2017-09-29 13:59] LABS: BACTERIA NONE SEEN /HPF; MUCUS NONE SEEN /LPF; RED BLOOD CELLS 0-5 /HPF (0-5); UCUL ADDED? YES; WHITE BLOOD CELLS 30-40 /HPF (0-5)
[2017-09-29] MEDS ORDERED: PERCOCET 5/31 TABLET PO (16:00)
[2017-09-29] MEDS ORDERED: BACTRIM,SEPT1 TABLET PO (16:00)
[2017-09-29 16:42] VITALS: BP 134/67
== END 2017-09-29 16:44 | disposition home or self-care (01) ==
LOC: EME 12:50
PROVIDERS: Physician Assistant
DX: N30.00 Acute cystitis without hematuria (principal); D69.6 Thrombocytopenia, unspecified; R19.5 Other fecal abnormalities; I12.0 Hypertensive chronic kidney disease with stage 5 chronic kidney disease or end stage renal disease; N18.6 End stage renal disease; Z99.2 Dependence on renal dialysis; F17.200 Nicotine dependence, unspecified, uncomplicated; Z90.49 Acquired absence of other specified parts of digestive tract
CPT/HCPCS: 74176; 80053; 81003; 83690; 85027; 87086; 99281; 99284

== ENCOUNTER 2018-01-08 13:26 | Emergency (ER) | payer OTHER ==
[~2018-01-08] VITALS: Ht 177.8 cm; Wt 85.5 kg
[~2018-01-08 13:26] MED LIST changes: +BACTRIM,SEPT1 TABLET PO
[2018-01-08 17:11] VITALS: BP 145/77
== END 2018-01-08 17:14 | disposition left against medical advice (07) ==
LOC: EME 13:26
DX: R10.9 Unspecified abdominal pain (principal); R22.42 Localized swelling, mass and lump, left lower limb; N18.5 Chronic kidney disease, stage 5; Z99.2 Dependence on renal dialysis; Z90.49 Acquired absence of other specified parts of digestive tract; F17.200 Nicotine dependence, unspecified, uncomplicated
CPT/HCPCS: 76882; 93971; 99281; 99283

== ENCOUNTER 2018-02-24 20:52 | Emergency (ER) | payer OTHER ==
[~2018-02-24] VITALS: Ht 177.8 cm; Wt 89.9 kg
[2018-02-24] MEDS ORDERED: PERIDEX473 ML MM (21:31)
[2018-02-24] MEDS ORDERED: PEN-VEE K,VEET500 MG PO (21:31)
[2018-02-24] MEDS ORDERED: ULTRAM50 MG PO (21:31)
[2018-02-24 22:10] VITALS: BP 177/96
[2018-02-26] MEDS ORDERED: PEN-VEE K,VEET500 MG PO (09:05)
[2018-02-26] MEDS ORDERED: BACTRIM,SEPT1 TABLET PO (09:06)
[2018-02-26] MEDS ORDERED: ULTRAM50 MG PO (09:07)
[2018-02-26] MEDS ORDERED: PERIDEX473 ML MM (09:08)
== END 2018-02-24 22:12 | disposition home or self-care (01) ==
LOC: RME 20:52 → EME 20:52 → RME 22:12
DX: K04.7 Periapical abscess without sinus (principal); N18.6 End stage renal disease; Z99.2 Dependence on renal dialysis; F17.200 Nicotine dependence, unspecified, uncomplicated; Z90.49 Acquired absence of other specified parts of digestive tract
CPT/HCPCS: 99281; 99284

== ENCOUNTER 2018-02-28 11:18 | Day surgery (SDC) | payer OTHER ==
[~2018-02-28] VITALS: Ht 177.8 cm; Wt 85.7 kg
[~2018-02-28 11:18] MED LIST changes: +PEN-VEE K,VEET500 MG PO; +PERIDEX473 ML MM; +ULTRAM50 MG PO
[2018-02-28 12:11] LABS: HEMATOCRIT 32.9 % (38.0-50.0); HEMOGLOBIN 11.1 G/DL (12.5-16.6); MCHC 33.7 G/DL (30.0-36.0); MCV 88.9 FL (86-99); PLATELET COUNT 160 K/uL (156-360); RBC DIS.WIDTH-CV 14.3 % (11.8-14.6); RBC DIS.WIDTH-SD 45.9 % (39-53); WHITE BLOOD COUNT 5.6 K/uL (4.1-10.2)
[2018-02-28 12:14] VITALS: BP 150/89
[2018-02-28 12:43] LABS: CHLORIDE 88 MEQ/L (99-109); CREATININE 12.8 MG/DL (0.6-1.3); GFR ESTIMATE (CALCULATED) 5 mL/min/ (58.99-99999); GLUCOSE 104 mg/dL (70-99); POTASSIUM 4.8 MEQ/L (3.7-5.4); SODIUM 139 MEQ/L (136-147); UREA NITROGEN (BUN) 42 mg/dL (9-23)
[2018-02-28 15:55] VITALS: BP 157/83
== END 2018-02-28 16:27 | disposition home or self-care (01) ==
LOC: SDC 11:18
PROVIDERS: Surgery
PROC: 037Y3ZZ Dilation of Upper Artery, Percutaneous Approach (ICD-10-PCS; principal; 2018-02-28)
PROC: 057Y3ZZ Dilation of Upper Vein, Percutaneous Approach (ICD-10-PCS; principal; 2018-02-28)
PROC: B51W1ZZ Fluoroscopy of Dialysis Shunt/Fistula using Low Osmolar Contrast (ICD-10-PCS; principal; 2018-02-28)
DX: T82.858A Stenosis of other vascular prosthetic devices, implants and grafts, initial encounter (principal); Y83.2 Surgical operation with anastomosis, bypass or graft as the cause of abnormal reaction of the patient, or of later complication, without mention of misadventure at the time of the procedure; I12.0 Hypertensive chronic kidney disease with stage 5 chronic kidney disease or end stage renal disease; N18.6 End stage renal disease; Z99.2 Dependence on renal dialysis; Z90.49 Acquired absence of other specified parts of digestive tract; F17.200 Nicotine dependence, unspecified, uncomplicated; Z83.3 Family history of diabetes mellitus; Z80.3 Family history of malignant neoplasm of breast; Z86.19 Personal history of other infectious and parasitic diseases
CPT/HCPCS: 80048; 85027; 87641; 93005; C1725; C1769; C1894; J0690; J1100; J1644; J2250; J2405; J3010